=== PATIENT | female | born 1995 | race Asian ===

== ENCOUNTER 2024-11-08 04:42 | Emergency (ER) | payer OTHER ==
[~2024-11-08] VITALS: Ht 165.1 cm; Wt 74.0 kg
[2024-11-08 04:53] VITALS: O2SAT 100
[2024-11-08] MEDS: KETOROLAC 15MG/ML VIAL IV ONE (05:45)
[2024-11-08] MEDS: SODIUM CHLORIDE 0.9% 1,000 ML IV ONE (06:22)
[2024-11-08 06:41] LABS: BASOPHILS % 0.3 % (0.0-2.0); EOSINOPHILS % 0.3 % (0.0-5.0); HEMATOCRIT. 37.9 % (36.0-48.0); HEMOGLOBIN. 12.5 g/dL (12.0-16.0); LYMPHOCYTES % 15.1 % (20.0-50.0); MEAN PLATELET VOLUME 9.2 fl (7.4-10.4); MONOCYTES % 5.2 % (2.0-8.0); NEUTROPHILS % 79.1 % (40.0-76.0); PLATELET 261 x1000/uL (130-400); RED BLOOD CELL COUNT 3.96 mill/uL (4.2-5.4); RED CELL DISTRIBUTION WIDTH 13.3 % (11.6-14.6)
[2024-11-08] MEDS: ONDANSETRON HCL 4MG/2ML INJ IV ONE (06:55)
[2024-11-08 06:59] LABS: CREATININE 0.8 mg/dL (0.6-1.0)
[2024-11-08 07:00] LABS: UREA NITROGEN BLOOD 11 mg/dL (9-23)
[2024-11-08 07:02] LABS: ASPARTATE AMINOTRANSFERASE 15 IU/L (<34); BILIRUBIN DIRECT 0.3 mg/dL (<=3.0); BILIRUBIN TOTAL 1.2 mg/dL (0.1-1.0); HCG SCREEN NEGATIVE; PROTEIN TOTAL 6.6 g/dL (6.0-8.3)
[2024-11-08] MEDS ORDERED: POLY17PO3 MT (08:04)
[2024-11-08 08:10] LABS: CLARITY URINE CLOUDY (CLEAR); COLOR URINE DARK YELLOW (YELLOW); GLUCOSE URINE NEGATIVE (NEGATIVE); KETONES URINE 2+ (NEGATIVE); LEUKOCYTE ESTERASE URINE TRACE (NEGATIVE); NITRITE URINE NEGATIVE (NEGATIVE); OCCULT BLOOD URINE NEGATIVE (NEGATIVE); PH URINE 6.5 (4.5-8.0); PROTEIN URINE NEGATIVE (NEGATIVE); SPECIFIC GRAVITY URINE 1.023 (1.005-1.030); UROBILINOGEN URINE 1.0 E.U./dL (0.2-1.0)
[2024-11-08 08:36] LABS: SQUAMOUS EPITHELIAL CELL URINE 2+ /lpf (RARE/1+)
[2024-11-08 08:37] LABS: BACTERIA URINE 2+; CALCIUM OXALATE CRYSTALS URINE 1+ /lpf; RBC URINE NONE SEEN /hpf (0-2)
[2024-11-08 09:28] VITALS: BP 98/66; PULSE 67; RESP 14; TEMP 36.7; O2SAT 100
== END 2024-11-08 09:29 | disposition home or self-care (01) ==
LOC: ER 04:42 → CANBEDREQ 08:20 → ER 09:29
DX: K59.00 Constipation, unspecified (principal)
CPT/HCPCS: 99284; 96374; 80076; 80048; 81003; 81025; 84703; 83690; 85025; 36415; 74018; J2405; J7030; J1885